=== PATIENT | male | born 1965 | race Caucasian/White ===

== ENCOUNTER 2023-09-19 07:16 | Emergency (ER) | payer OTHER, SELFPAY ==
--- NOTE | ~2023-09-19 | XR_ITS ---
EXAMINATION: XR CHEST AP PORTABLE, 8:01 AM CLINICAL INFORMATION: Dyspnea COMPARISON: None available. TECHNIQUE: Frontal view of the chest was obtained. FINDINGS: No significant abnormality is noted involving the heart, lungs, mediastinum, bony thorax or soft tissues. XR/XR chest 1V IMPRESSION: Unremarkable examination.
[2023-09-19 07:25] VITALS: BP 135/88; PULSE 96; RESP 20; TEMP 35.2; O2SAT 99; BMI 30.5
--- NOTE | 2023-09-19 07:30 | ECG_ITS ---
Test Reason : palpitations Blood Pressure : / mmHG Vent. Rate : 093 BPM Atrial Rate : 000 BPM P-R Int : 000 ms QRS Dur : 092 ms QT Int : 350 ms P-R-T Axes : 000 -46 068 degrees QTc Int : 435 ms Atrial fibrillation Left anterior fascicular block Septal infarct , age undetermined Abnormal ECG No previous ECGs available Referred By: Generic ED Physician Electronically Signed By:Lele Martin
--- NOTE | 2023-09-19 07:43 | ED.ARRPALP ---
HPI - Arrhythmia/Palpitations General Chief Complaint: Arrhythmia/Palpitations Stated Complaint: Diff Breathing Weak Time Seen by Provider: 09/19/23 07:39 Source: patient Mode of arrival: ambulatory Limitations: no limitations History of Present Illness HPI narrative: 57 yo male with PMH of seizures on depakote who was sick over the weekend and taking mucinex regularly almost every 4 hours. He has no fam hx of afib. He has no other medical problems. He did not drink alcohol this weekend and does not do drugs. He went to work this AM felt a very fast and irregular heart beat became dizzy and sweaty. He had no CP. He tested himself for COVID on Sunday but it was negative. He has never had afib before. MD complaint: rapid heart beat, heart racing and palpitations Onset (ago): hour(s) (couple) Duration: constant Severity: moderate Context: occurred during rest Associated symptoms: anxiety and diaphoresis Related Data Previous Rx's Medication Instructions Recorded metoprolol succinate 25 mg 25 mg PO DAILY #30 tabs 09/19/23 tablet,extended release 24 hr (Toprol XL) Allergies Allergy/AdvReac Type Severity Reaction Status Date / Time No Known Allergies Allergy Verified 09/19/23 07:29 Review of Systems Review of Systems: Constitutional : No Fever, No Chills ENT/Mouth : No sore throat, pos Rhinorrhea, No Swallowing Difficulty Eyes: No Eye Pain, No Swelling, No Redness Cardiovascular : No Chest Pain, positive SOB, No Orthopnea, no Edema, pos palpitations Respiratory : No Cough, No Sputum, No Wheezing, positive dyspnea Gastrointestinal : No Nausea, No Vomiting, No Diarrhea, No abdominal Pain, No Hematochezia, No Melena Genitourinary : No Dysuria, No Urinary Frequency, No Hematuria Musculoskeletal : No joint pain, No Myalgias Skin : No Skin Lesions, No rash Neuro : No Weakness, No Numbness, No Dizziness, No Headache Psych : No Anxiety/Panic, No Depression All other systems reviewed and are negative [facility] Past Medical History Attestation statement: The following information was validated with the patient. Source: old records reviewed Onset Date is defined in the Problem List Problems that require an onset date and time if occurred within 24 hrs of arrival to the ED Aortic Dissection and Rupture; Neurologic impairment; Cardiopulmonary Arrest; Endotracheal Intubation; Insertion or Replacement of Mechanical Circulatory Assist Device Medical History Seizures Social History Social History (Updated 09/19/23 @ 08:14 by Cori Osorio DO) Alcohol intake: current Patient Tobacco Use Status: Tobacco use Unknown Smoked in Last 30 Days: No Use of substances other than those prescribed or required for medical reasons: Yes Substance Use Type: Marijuana Substance Use Frequency: Occasionally Advance Directives: No Advance Directives Information Provided: No Physical Exam Vital Signs: Vital Signs: Last Vital Signs Temp 95.4 F L 09/19/23 07:25 Pulse 72 09/19/23 13:52 Resp 16 09/19/23 13:52 BP 107/80 09/19/23 13:52 Pulse Ox 98 09/19/23 13:52 O2 Del Method Room Air 09/19/23 13:52 BMI result Body Mass Index 30.5 Appearance: Alert. Oriented X3. No acute distress. Eyes: Pupils equal, round and reactive to light. ENT: Pharynx normal. Neck: Normal inspection. Neck supple. no JVD CVS: irregular 80s to 100s heart rate and rhythm. Pulses normal. Respiratory: No respiratory distress. Breath sounds normal. Abdomen: Soft and non-tender. Skin: Skin warm and dry. Normal skin color. Normal skin turgor. Extremities: No lower extremity edema. No calf ttp Neuro: Oriented X 3. No motor deficit. No sensory deficit. Course Course Course Narrative: discussed workup with Dr. Martin at this time recommends IV lopressor 5mg hold off flecainide or cardioversion Reevaluation(s) Reevaluation #1: still in afib pending further cardiology recommendations Reevaluation #2: Mario rate control - DC home follow up in clinic Medications Administered Discontinued Medications Generic Name Dose Route Start Last Admin Trade Name Freq PRN Reason Stop Dose Admin Diltiazem HCl 5 mg 09/19/23 08:07 09/19/23 08:37 Diltiazem Hcl 50 Mg/10 Ml Vial IVPUSH 09/19/23 08:08 5 mg STAT STA Administration Sodium Chloride 1,000 mls @ 999 mls/hr 09/19/23 08:15 09/19/23 09:37 Ns IV 09/19/23 09:15 Infused .Q1H1M MICHAEL Infusion Magnesium Sulfate 2 gm in 50 mls @ 25 mls/hr 09/19/23 08:07 09/19/23 10:43 Magnesium Sulfate/H2o IV 09/19/23 10:06 Infused ONCE ONE Infusion Metoprolol Tartrate 5 mg 09/19/23 10:13 09/19/23 10:23 Metoprolol Tartrate 5 Mg/5 Ml Vial IVPUSH 09/19/23 10:14 5 mg ONCE ONE Administration Medical Decision Making Medical Decision Making MDM Narrative: 57 yo male with PMH of seizures on depakote here with c/o irregular heart beat and palpitations in setting of recent URI and taking a lot of mucinex - EKG shows afib. At this time will obtain basic labs, lytes, hydrate, low dose dilt and magnesium. His chads vasc score is 0 at this time. Doubt ischemia. 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 09/19/23 07:46 09/19/23 07:46 Labs: Lab Results 09/19/23 Range/Units 07:46 WBC 3.9 L (4.8-10.8) X10*3/uL RBC 5.43 (4.60-5.80) X10*6/uL Hgb 16.3 (14.0-18.0) g/dl Hct 48.4 (42.0-52.0) % MCV 89.1 (80.0-98.0) fL MCH 30.0 (27.0-33.0) pg MCHC 33.7 (31.0-36.0) g/dl RDW 13.4 (11.0-16.0) % Plt Count 163 (160-400) X10*3/uL MPV 9.7 (9.4-12.4) fL Immature Gran % (Auto) 0.8 H (0.0-0.4) % Neut % (Auto) 37.0 L (45-73) % Lymph % (Auto) 37.2 (20-40) % [place] % (Auto) 19.6 H (2-11) % Eos % (Auto) 4.6 H (0-4) % Baso % (Auto) 0.8 (0-2) % Lymph # (Auto) 1.5 (1.2-4.9) X10*3/uL [place] # (Auto) 0.8 (0.1-1.2) X10*3/uL Eos # (Auto) 0.2 (0.0-0.4) X10*3/uL Baso # (Auto) 0.0 (0.0-0.2) X10*3/uL Abs Immat Gran (auto) 0.03 (0.00-0.03) X10*3/uL Absolute Neuts (auto) 1.5 L (2.0-8.3) x10*3/uL Absolute Nucleated RBC 0.000 (0.0-0.012) X10*3/uL Nucleated RBC % (auto) 0.0 (0.0-0.2) /100WBC Sodium 142 (135-145) mmol/L Potassium 3.5 (3.3-5.1) mmol/L Chloride 107 (96-108) mmol/L Carbon Dioxide 28 (22-29) mmol/L Anion Gap 11 L (12-20) BUN 16 (9-16) mg/dL Creatinine 0.96 (0.5-1.4) mg/dL Estim Creat Clear Calc 108.2 Estimated GFR > 60 Random Glucose 95 (60-115) mg/dL Calcium 9.7 (8.4-10.2) mg/dL Magnesium 1.9 (1.6-2.6) mg/dL Total Bilirubin 0.3 (0.0-1.0) mg/dL Direct Bilirubin 0.1 (0.0-0.5) mg/dL AST 28 (5-37) U/L ALT 29 (0-40) U/L Alkaline Phosphatase 65 (39-117) U/L Troponin I High Sens 3.6 (<3.5-35.0) ng/L B-Natriuretic Peptide 33 (<100) pg/mL Total Protein 7.9 (6.5-8.0) g/dL Albumin 4.4 (3.5-5.0) g/dL Lipase 33 (8-78) U/L TSH 2.97 (0.32-4.0) uIU/mL Urine Color Yellow Urine Appearance Clear Urine pH 6.0 (5.0-9.0) Ur Specific [place] 1.010 (1.005-1.025) Urine Protein Trace (Neg-Trace) mg/dL Urine Glucose (UA) Negative (Negative) mg/dL Urine Ketones Negative (Negative) mg/dL Urine Blood Negative (Negative) Urine Nitrite Negative (Negative) Ur Leukocyte Esterase Negative (Negative) Ethyl Alcohol < 10 mg/dL COVID-19 (ROBIN) Negative (Negative) COVID-19 Clin Com See Note Influenza Type A (SCHUYLER) Positive A (Negative) Influenza Type B ([facility]ER) Negative (Negative) Influenza A & B Note See Note Independent Interpretation I performed an independent interpretation of an: EKG and Plain X-Ray (normal ) Interpretation: Rate: 93 Rhythm: afib [place]: left Normal QRS complex. ST T wave : nonspecficic but no TARA qTC: 435 prior studies: no prior The study has been interpreted contemporaneously by me. . Radiology Impression Discussion of test interpretation with radiology: I have reviewed the radiologist's reading. Prescription Management I considered prescription management with: Other Critical Care Time Critical Care Time Critical Care Time: Yes Total Critical Care Time: 40 Attestation: repeat IV medications for HR rate control, consult I attest to this time spent taking care of the patient Discharge Plan Discharge Clinical Impression: Influenza A Atrial fibrillation Qualifiers: Atrial fibrillation type: paroxysmal Qualified Code(s): I48.0 - Paroxysmal atrial fibrillation Patient Disposition: Home, Self-Care Instructions: A-fib (Atrial Fibrillation) (ED), Influenza (ED) Additional Instructions: avoid alcohol and cough/cold medications return for HR over 100, chest pain, trouble breathing, leg swelling, dizziness or any other concerns. start the toprol in the AM hold if the blood pressure below 100 or HR below 50 - call your doctor and cardiology for follow up take 81mg baby aspirin a day Prescriptions: New metoprolol succinate [Toprol XL] 25 mg tablet extended release 24 hr 25 mg PO DAILY Qty: 30 0RF Referrals: Lele Martin MD [Physician] - (call to schedule appointment) Stand Alone Forms: Work/School Release Interventions: ED Discharge Assessment Last Done: 09/19/23 15:07 Discharge Date/Time: 09/19/23 15:07
--- NOTE | 2023-09-19 07:45 | PC.NURSE ---
MD to bedside for primary eval.
[2023-09-19 07:52] LABS: MANUAL DIFF FLAG NO
[2023-09-19 07:54] LABS: Appearance Urine Clear; Basophils Percent Auto 0.8 % (0-2); Color Urine Yellow; Eosinophils Absolute Auto 0.2 X10*3/uL (0.0-0.4); Eosinophils Percent Auto 4.6 % (0-4); Glucose Urine UA Negative (Negative); Hematocrit 48.4 % (42.0-52.0); Hemoglobin 16.3 g/dl (14.0-18.0); Imm Gran Abs Auto 0.03 X10*3/uL (0.00-0.03); Imm Gran Pct Auto 0.8 % (0.0-0.4); Leukocyte Esterase Urine Negative (Negative); Lymphocytes Absolute Auto 1.5 X10*3/uL (1.2-4.9); Lymphocytes Percent Auto 37.2 % (20-40); Mean Corpuscular HGB Conc 33.7 g/dl (31.0-36.0); Mean Corpuscular Volume 89.1 fL (80.0-98.0); Mean Platelet Volume 9.7 fL (9.4-12.4); Monocytes Absolute Auto 0.8 X10*3/uL (0.1-1.2); Monocytes Percent Auto 19.6 % (2-11); Neutrophils Absolute Auto 1.5 x10*3/uL (2.0-8.3); Nitrite Urine Negative (Negative); Platelet Count 163 X10*3/uL (160-400); Red Blood Count 5.43 X10*6/uL (4.60-5.80); Red Cell Distribution Width 13.4 % (11.0-16.0); Urine Blood Negative (Negative); Urine Ketones Negative (Negative); Urine Protein Trace mg/dL (Neg-Trace); White Blood Count 3.9 X10*3/uL (4.8-10.8)
[2023-09-19 08:08] LABS: Alanine Aminotransferase 29 U/L (0-40); Albumin Level 4.4 g/dL (3.5-5.0); Alkaline Phosphatase 65 U/L (39-117); Anion Gap 11 (12-20); Aspartate Amino Transferase 28 U/L (5-37); Bilirubin Direct 0.1 mg/dL (0.0-0.5); Bilirubin Total 0.3 mg/dL (0.0-1.0); Blood Urea Nitrogen 16 mg/dL (9-16); Calcium 9.7 mg/dL (8.4-10.2); Carbon Dioxide 28 mmol/L (22-29); Chloride 107 mmol/L (96-108); Creatinine Clr Calc Pharmacy 108.2; Estimated Glomerular Filt Rate > 60; Glucose Random 95 mg/dL (60-115); Lipase 33 U/L (8-78); Potassium 3.5 mmol/L (3.3-5.1); Sodium 142 mmol/L (135-145); Total Protein 7.9 g/dL (6.5-8.0)
[2023-09-19 08:13] LABS: B Type Natriuretic Peptide 33 pg/mL (<100)
[2023-09-19 08:15] LABS: Troponin-I High Sensitivity 3.6 ng/L (<3.5-35.0)
[2023-09-19 08:16] LABS: Ethanol < 10 mg/dL; Magnesium 1.9 mg/dL (1.6-2.6)
[2023-09-19 08:17] LABS: COVID-19 Test Negative (Negative); IDNOW Serial# 58CA691E
[2023-09-19 08:18] LABS: IDNOW Serial# 9DB6401D; Influenza A Positive (Negative); Influenza B2 Negative (Negative)
[2023-09-19 08:29] LABS: TSH reflex Free T4 2.97 uIU/mL (0.32-4.0)
[2023-09-19] MEDS: 0.9 % Sodium Chloride 1,000 ML 999 ML IV (08:30)
[2023-09-19] MEDS: dilTIAZem HCL 50 MG/10 ML VIAL IVPUSH (08:37)
[2023-09-19] MEDS: Magnesium Sulfate/H2O 2 GM/50 ML PIGGYBACK IV (08:38)
[2023-09-19 08:44] VITALS: BP 112/78; PULSE 85; RESP 16; O2SAT 98
[2023-09-19 10:00] VITALS: BP 128/85; PULSE 69; RESP 16; O2SAT 99
--- NOTE | 2023-09-19 10:09 | PC.NURSE ---
Pt resting on stretcher, skin pwd respirations even unlabored. Denies chest pain. Afib on monitor HR 69-79. Mag continues to infuse without difficulty. MD Osorio to bedside for reeval.
[2023-09-19 10:28] VITALS: BP 117/84; PULSE 64; RESP 14; O2SAT 97
--- NOTE | 2023-09-19 10:29 | PC.NURSE ---
Medicated with metoprolol IVP per MD order, Remains afib on monitor HR 61-70, continues to deny chest pain. Will continue to monitor.
[2023-09-19 12:16] VITALS: BP 123/88; PULSE 67; RESP 15; O2SAT 99
--- NOTE | 2023-09-19 12:47 | PC.NURSE ---
No change in physical assessment, remains afib on monitor HR 64. Awaiting cardiology consult, aware of plan of care.
[2023-09-19 13:52] VITALS: BP 107/80; PULSE 72; RESP 16; O2SAT 98
--- NOTE | 2023-09-19 15:06 | PC.NURSE ---
Pt cleared for dc with outpt cardiology f/u. IV removed, dc instructions provided.
== END 2023-09-19 15:07 | disposition home or self-care (01) ==
PROVIDERS: Emergency Provider Emergency Medicine; PCP Internal Medicine
DX: J10.1 Influenza due to other identified influenza virus with other respiratory manifestations (principal); I48.0 Paroxysmal atrial fibrillation; R00.2 Palpitations; R06.00 Dyspnea, unspecified; Z11.52 Encounter for screening for COVID-19; Z79.899 Other long term (current) drug therapy
CPT/HCPCS: 36415; 71045; 80048; 80076; 80307; 81003; 83690; 83735; 83880; 84443; 84484; 85025; 87502; 87635; 93005; 96361; 96365; 96375; 99284; 99285; J3475

== ENCOUNTER → 2023-09-19 07:30 | Outpatient (BNV) | payer OTHER, SELFPAY | PROVIDERS: Emergency Provider Emergency Medicine; PCP Internal Medicine; Visit Provider Internal Medicine Cardiovascular Disease | DX: I48.91 Unspecified atrial fibrillation (principal); R94.31 Abnormal electrocardiogram [ECG] [EKG] | CPT/HCPCS: 93010 ==

== ENCOUNTER 2023-09-25 15:08 | Outpatient (AMB) | payer OTHER, SELFPAY ==
[2023-09-25 15:13] VITALS: BP 114/84; PULSE 75; BMI 30.5
--- NOTE | 2023-09-25 15:13 | A.OFFVIS_ITS ---
Intake Vital Signs 09/25/23 15:13 Height 6 ft 2 in Weight 237 lb 3.478 oz BMI 30.5 BP 114/84 Blood Pressure Location Lt brachial Position Sitting Pulse 75 Pulse Source Pulse Oximeter Intake Visit Reasons: [facility] follow up/ Afib Allergies No Known Allergies Allergy (Verified 09/25/23 15:16) Medication List - Last Reconciled 09/25/23 by Benita Sawant, [employer] divalproex 500 mg PO TID metoprolol succinate ER (Toprol XL) 25 mg PO DAILY HPI [facility] follow up/ Afib HPI Details Kye is a 57-year-old male with past medical history of seizures and obstructive sleep apnea who recently had influenza and went to the emergency room with heart palpitations. He was found to have new onset atrial fibrillation that was treated with heart rate control. He was started on metoprolol and referred to Cardiology in outpatient follow-up. Today he presents for cardiology consultation. He denies any known history of AFib but reports that he has felt heart palpitations on 1 other occasion in the past. He does not remember the circumstances of that episode. Last week when he felt palpitations he had been feeling ill and was taking lots of Mucinex. He noticed heart palpitation and tried to check his pulse. He found that it was very irregular and he knew this was abnormal. He presented to the ER for evaluation as above. Once he was treated with medications his heart palpitations improved. He has not had recurrent heart palpitations since that time. He denies having chest discomfort at rest or with activity. No shortness of breath, lightheadedness, presyncope, syncope, PND, orthopnea or edema. 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 He never smoked. He drinks alcohol socially. He has a history of obstructive sleep apnea but does not wear his mask. No known family history of AFib, [place], strokes. His sister has history of arrhythmia which he believes is tachycardia. [facility] Medical History Seizures Family History Sister Arrhythmia Social History Alcohol intake: current Patient Tobacco Use Status: Tobacco use Unknown Substance Use Type: Marijuana Review of Systems Const All systems reviewed & are unremarkable except as noted in HPI and below ENT Denies dizziness Card Denies chest pain, Denies chest pain at rest, Denies chest pain with activity, Reports rapid heart rate, Denies pedal edema, Denies edema, Denies leg edema, Denies lightheadedness, Reports palpitations, Denies dyspnea, Denies dyspnea on exertion and Denies orthopnea Resp Denies cough, Denies dyspnea and Denies dyspnea on exertion GI Denies hematochezia and Denies change in stool character Musc Reports abnormal gait (numbness right foot), Denies limited range of motion, Denies muscle cramps, Denies muscle weakness, Denies numbness, Denies radiating pain into limb, Denies stiffness and Denies tingling Neuro Reports abnormal gait (numbness right foot), Denies dizziness, Denies numbness and Denies tingling Endo Reports palpitations Physical Exam Vital Signs: BMI result Body Mass Index 30.5 Const General: cooperative, healthy appearing, comfortable and no acute distress Orientation/consciousness: patient oriented x3 Neck Neck: Yes normal visual inspection Resp Effort & Inspection: normal respiratory effort Auscultation: clear to auscultation bilaterally, no crackles, no rales, no rhonchi and no wheezes Cardio Jugular venous distension: no JVD Rate: regular rate Rhythm: regular rhythm Heart sounds: S1 normal heart sound present, S2 normal heart sound present, no murmurs and no rubs Neuro General: patient oriented x3 Extrem General: Yes normal to inspection and No no pedal edema Psych Appearance: grossly normal Mental Status: mental status grossly normal Speech and movement: Normal speech and movement present Office Procedures EKG Details: Today, read by me, normal sinus rhythm, no acute ST and T-wave abnormalities, rate 72, QTC 411 milliseconds [id number], Complete Assessment & Plan Assessment & Plan (1) Atrial fibrillation: Code(s): I48.91 - Unspecified atrial fibrillation Qualifiers: Atrial fibrillation type: paroxysmal Qualified Code(s): I48.0 - Paroxysmal atrial fibrillation Plan: New finding of atrial fibrillation at time of ER visit 09/19/2023 in the setting of influenza A. Patient notice heart palpitations, elevated heart rates causing concern. EKG in the emergency room shows atrial fibrillation, heart rate 93, no acute ST or T-wave abnormalities. Troponin level was normal, BNP 33. He was treated for heart rate control then started on metoprolol XL 25 mg daily. It seems that he was discharged in ongoing atrial fibrillation with improved heart rate. EKG done today showing normal sinus rhythm, no acute ST or T-wave abnormality, rate 72. He has not had any recurrent heart palpitations. He has been taking his metoprolol. Chads Vasc score of 0, low stroke risk. Diagnosis of atrial fibrillation reviewed with him in detail, stroke risk with AFib discussed. He has a known history of obstructive sleep apnea and does not use his CPAP mask. This can contribute to his diagnosis of AFib and recurrent episodes. Instructed on wearing his mask at least 4 hours nightly. Will check an echocardiogram to assess for any structural heart disease. Will order a Holter monitor to assess for any recurrent atrial fibrillation. Will continue on metoprolol XL. Reduce caffeine/stimulants. Exercise as tolerated, maintain good hydration and reduce alcohol intake. Cardiology follow-up in 4-6 weeks to go over test results, sooner if needed. (2) Obstructive sleep apnea: Code(s): G47.33 - Obstructive sleep apnea (adult) (pediatric) Plan: As above Plan Time spent on chart review, documentation, interview and assessment Orders: Orders CA echo transthoracic complete Today I48.91 - Unspecified atrial fibrillation ECG 3 day holter monitor Today I48.91 - Unspecified atrial fibrillation Medications: Refilled metoprolol succinate ER (Toprol XL) 25 mg PO DAILY 90 tabs 1RF Coding Level of Care Code New Pt Level 3 (29192) Diagnoses Atrial fibrillation I48.0 Atrial fibrillation type: paroxysmal Obstructive sleep apnea G47.33 CPT Codes EKG - CPT: 13637-[id number], Complete ([id number]) Time Spent (min) 26
== END 2023-09-25 16:00 | disposition home or self-care (01) ==
PROVIDERS: PCP Internal Medicine; Visit Provider Nurse Practitioner Family
DX: I48.0 Paroxysmal atrial fibrillation (principal); G47.33 Obstructive sleep apnea (adult) (pediatric)
CPT/HCPCS: 93010; 99203

== ENCOUNTER → 2023-09-25 15:08 | Outpatient (BNVA) | payer OTHER, SELFPAY | PROVIDERS: PCP Internal Medicine; Visit Provider Nurse Practitioner Family | DX: I48.0 Paroxysmal atrial fibrillation (principal); G47.33 Obstructive sleep apnea (adult) (pediatric); Z79.899 Other long term (current) drug therapy | CPT/HCPCS: 93005 ==

== ENCOUNTER → 2023-11-13 07:55 | Outpatient (REF) | payer OTHER, SELFPAY ==
--- NOTE | 2023-11-13 08:01 | HM_ITS ---
Conclusion: 1. Patient was monitored for total period of 3 days 2. Baseline was normal sinus rhythm with average heart of 75 beats per minute 3. No significant arrhythmias or pauses noted 4. No patient reported events MTDD
--- NOTE | 2023-11-13 08:01 | CA_ITS ---
Transthoracic Echocardiogram Amended Patient (Last, First, Middle): Kye Castro S Gender: Male Date of : 1965 Age: 58 Procedure Date: 11/13/2023 Procedure Type: Transthoracic Echocardiogram Location: OP Height: 187.96 cm Weight: 106.6 kg BSA: 2.33 m2 Heart Rate: bpm BP: 130 / 80 mmHg Broadcast Journalist: TO Referring MD: Benita Sawant [employer]ODWIN[employer] TEACHERMarky Symptoms: I48.91 - Unspecified atrial fibrillation Study Quality: Adequate ECG Rhythm: Sinus Conclusions: - The left ventricular systolic function is normal. The calculated ejection fraction is 62% by biplane method. - There is moderately increased left ventricular wall thickness. - There is moderate septal asymmetric hypertrophy. - No obvious valvular pathology seen on this study. Findings Left Ventricle Normal left ventricular cavity size. There is moderately increased left ventricular wall thickness. The left ventricular systolic function is normal. The calculated ejection fraction is 62% by biplane method. There is no evidence of regional wall motion abnormalities. Diastolic function is normal for age. There is moderate septal asymmetric hypertrophy. LV peak GLS -19.6%. (LV thickness difficult to measure). Right Ventricle Mildly increased right ventricular cavity size. There is normal right ventricular systolic function. Atria The left atrium is mildly dilated. The right atrium is normal in size. Aortic Valve There is a normal trileaflet aortic valve. There is no aortic valve stenosis. There is no aortic valve regurgitation. Mitral Valve The mitral valve appears normal. There is trace mitral valve regurgitation. There is no mitral valve stenosis. Pulmonic Valve There is trace pulmonic valve regurgitation. Tricuspid Valve Normal tricuspid valve structure. There is trace tricuspid valve regurgitation. There is no evidence of pulmonary hypertension. Great Vessels The asc aorta is normal in size. Venous The inferior vena cava is normal in size and collapses greater than 50% with inspiration. Pericardium/Pleural There is no evidence of pericardial effusion. Prior Study Comparison No prior study available for comparison. Recommendations, Care & Conclusions No obvious valvular pathology seen on this study. Measurements 2D Linear Measurements IVSd: 1.75 0.6-0.9/0.6-1.0 cm LVIDd: 3.91 3.9-5.3/4.2-5.9 cm LVIDd Index: 1.68 2.4-3.2/2.2-3.1 cm/m2 LVIDs: 2.85 2.0-3.6 cm LVPWd: 1.35 0.7-1.1 cm LA Diam: 3.50 2.7-3.8/3.0-4.0 cm LAIDs Index: 1.50 1.5-2.3 cm/m2 LV Mass: 296.08 67-162/88-224 g LV Mass Index: 127.07 43-95/49-115 g/m2 LVOT Diam: 2.60 3.0+(-)1.3 cm 2D Volumes LA Vol: 38.30 2D Systolic Function EF 4C: 58.80 >55% EF 2C: 62.90 >55% EF BiP: 61.70 >55% Mitral Valve MV Pk E: 0.54 MV PK A: 0.40 MV Decel Time: 224.00 E/A: 1.40 E'Lateral: 9.03 E'Medial: 6.74 E/E' Med: 8.10 E/E' Lat: 6.00 PHT: 65.00 MVA PHT: 3.38 Decel [place]: 2.43 Aortic Valve AoV Pk Umer: 1.16 AoV Mn Umer: 0.81 AoV VTI: 0.25 AoV Pk Grad: 5.00 Aov Mn Grad: 3.00 IDALIA Cont.VTI: 4.57 LVOT LVOT Pk Umer: 0.98 LVOT Mn Umer: 0.63 LVOT VTI: 0.22 LVOT Pk Grad: 4.00 LVOT Mn Grad: 2.00 LVOT Diam: 2.60 LVOT Area: 5.31 Diastolic Function MV Pk E: 0.54 MV Pk A: 0.40 E/A: 1.40 E'Medial: 6.74 E/E' Med: 8.10 E' Laterial: 9.03 E/E' Lat: 6.00 Right Ventricle TAPSE (mm): 22.80 TVS' Umer: 12.10 Tricuspid Valve TR Pk Umer: 1.87 TR Pk Grad: 14.00 RA Press: 3.00 RVSP: 17.00 Great Vessels Aorta Sinus of Valsalva: 4.45 2.0-3.[address] [place]: 2.99 1.7-3.4 cm Ao Asc: 3.90 2.1-3.4 cm Ao Arch: 3.60 Updated in Other Vendor System with Status of Final David Mathis MD electronically signed on 11/18/2023 9:51:53 AM with status of Final
== END ==
LOC: HO.CARD 07:55
PROVIDERS: PCP Internal Medicine; Visit Provider Nurse Practitioner Family
DX: I48.91 Unspecified atrial fibrillation (principal)
CPT/HCPCS: 93242; 93306

== ENCOUNTER → 2023-11-13 08:01 | Outpatient (BNV) | payer OTHER, SELFPAY | PROVIDERS: PCP Internal Medicine; Visit Provider Internal Medicine | DX: I48.91 Unspecified atrial fibrillation (principal) | CPT/HCPCS: 93244; 93306 ==

== ENCOUNTER 2023-11-22 15:22 | Outpatient (AMB) | payer OTHER, SELFPAY ==
[2023-11-22 15:32] VITALS: BP 116/68; PULSE 74; BMI 30.8
--- NOTE | 2023-11-22 15:32 | A.OFFVIS_ITS ---
Intake Vital Signs 11/22/23 15:32 Height 6 ft 2 in Weight 240 lb BMI 30.8 BP 116/68 Blood Pressure Location Lt brachial Position Sitting Pulse 74 Intake Visit Reasons: fu echo Intake Note: follow up echo Allergies No Known Allergies Allergy (Verified 09/25/23 15:16) Medication List - Last Reconciled 11/22/23 by Benita Sawant, TREASURY ANALYST-C aspirin 81 mg PO DAILY divalproex 500 mg PO TID metoprolol succinate ER (Toprol XL) 25 mg PO DAILY HPI fu echo HPI Details Kye is a 58-year-old male past medical history of seizures, obstructive sleep apnea, newer finding of paroxysmal atrial fibrillation in the setting of influenza who recently had a Holter monitor and echocardiogram and now presents for follow-up. Today he reports that he had 1 episode where he felt fluttering in his chest which lasted 3-4 minutes before resolving. No other heart palpitations noted. No chest discomfort at rest or with activity. No shortness of breath, PND, o rthopnea or edema. No lightheadedness, presyncope, syncope, falls. Taking meds as directed. Has not been wearing his CPAP mask. [facility] Medical History Seizures Family History Sister Arrhythmia Social History Alcohol intake: current Patient Tobacco Use Status: Tobacco use Unknown Substance Use Type: Marijuana Review of Systems Const All systems reviewed & are unremarkable except as noted in HPI and below Denies weakness ENT Denies dizziness Card Denies chest pain, Denies chest pain with activity, Denies syncope, Denies rapid heart rate, Denies pedal edema, Denies edema, Denies leg edema, Denies lightheadedness, Reports palpitations, Denies dyspnea, Denies dyspnea on exertion and Denies orthopnea Resp Denies cough, Denies dyspnea and Denies dyspnea on exertion GI Denies hematochezia and Denies change in stool character Musc Denies abnormal gait, Denies muscle cramps, Denies muscle weakness, Denies numbness, Denies radiating pain into limb and Denies tingling Neuro Denies abnormal gait, Denies dizziness, Denies syncope, Denies numbness, Denies tingling and Denies weakness Endo Reports palpitations Physical Exam Vital Signs: Last Vital Signs Pulse 74 11/22/23 15:32 BP 116/68 11/22/23 15:32 BMI result Body Mass Index 30.8 Const General: cooperative, healthy appearing, comfortable and no acute distress Orientation/consciousness: patient oriented x3 Neck Neck: Yes normal visual inspection Resp Effort & Inspection: normal respiratory effort Auscultation: clear to auscultation bilaterally, no crackles, no rales, no rhonchi and no wheezes Cardio Jugular venous distension: no JVD Rate: regular rate Rhythm: regular rhythm Heart sounds: S1 normal heart sound present, S2 normal heart sound present, no murmurs and no rubs Neuro General: patient oriented x3 Extrem General: Yes normal to inspection and No no pedal edema Psych Appearance: grossly normal Mental Status: mental status grossly normal Speech and movement: Normal speech and movement present Assessment & Plan Assessment & Plan (1) Atrial fibrillation: Code(s): I48.91 - Unspecified atrial fibrillation Qualifiers: Atrial fibrillation type: paroxysmal Qualified Code(s): I48.0 - Paroxysmal atrial fibrillation Plan: New finding of atrial fibrillation at time of ER visit 09/19/2023 in the setting of influenza A. Patient notice heart palpitations, elevated heart rates causing concern. EKG in the emergency room shows atrial fibrillation, heart rate 93, no acute ST or T-wave abnormalities. He was treated for heart rate control then started on metoprolol XL 25 mg daily. Chads Vasc score of 0, low stroke risk. On follow up visit his showed normal sinus rhythm, no acute ST or T-wave abnormality, rate 72. An echocardiogram was done on 11/13/2023 showing EF 62%, moderate LVH, moderate septal asymmetric hypertrophy. A Holter monitor was completed however results are not available at the time of this visit. Today he reports that since his last visit he felt 1 episodes of heart palpitations lasting 3-4 minutes. Diagnosis of atrial fibrillation reviewed with him in detail, stroke risk with AFib discussed. Pulse is regular on examination. He has known sleep apnea and tells me he has not been wearing his mask. Benefit of mask use in reducing frequency of atrial fibrillation reviewed. Continue current metoprolol. Plan to call him with Holter results once available. Cardiology follow-up 6 months, sooner if needed (2) Obstructive sleep apnea: Code(s): G47.33 - Obstructive sleep apnea (adult) (pediatric) Plan: As above (3) LVH (left ventricular hypertrophy): Code(s): I51.7 - Cardiomegaly Plan: Echocardiogram showing moderate LVH and moderate septal asymmetric hypertrophy. Patient has known history of hypertension. Blood pressure today 116/68. Does have a EF for many years which has not been fully treated. He does have a CPAP mask but has not used in some time. Reviewed with Dr. Mathis and cardiac MRI was considered to assess for abnormalities such as amyloidosis. Discuss this with patient and he is reluctant to undergo MRI at this time due to the hi cost. With his insurance he has to pay 20%. Instructed him to wear CPAP mask nightly for the next 6 months and we will recheck echocardiogram in 6 months prior to his next cardiology follow-up. If LVH and asymmetric septal hypertrophy unchanged or worsened then MRI will be strongly encouraged. (4) Asymmetric septal hypertrophy: Code(s): I42.2 - Other hypertrophic cardiomyopathy Plan: As above Plan Time spent on chart review, documentation, interview and assessment Orders: Orders CA echo transthoracic complete 05/12/24 G47.33 - Obstructive sleep apnea (adult) (pediatric), I42.2 - Other hypertrophic cardiomyopathy, I51.7 - Cardiomegaly Coding Level of Care Code Est Pt Level 4 (94120) Diagnoses Atrial fibrillation I48.0 Atrial fibrillation type: paroxysmal Obstructive sleep apnea G47.33 LVH (left ventricular hypertrophy) I51.7 Asymmetric septal hypertrophy I42.2 Time Spent (min) 30
== END 2023-11-22 16:28 | disposition home or self-care (01) ==
PROVIDERS: PCP Internal Medicine; Visit Provider Nurse Practitioner Family
DX: I48.0 Paroxysmal atrial fibrillation (principal); G47.33 Obstructive sleep apnea (adult) (pediatric); I51.7 Cardiomegaly; I42.2 Other hypertrophic cardiomyopathy
CPT/HCPCS: 99214

== ENCOUNTER → 2023-11-22 15:22 | Outpatient (BNVA) | payer OTHER, SELFPAY | PROVIDERS: PCP Internal Medicine; Visit Provider Nurse Practitioner Family ==

== ENCOUNTER 2024-05-02 12:52 | Outpatient (AMB) | payer OTHER, SELFPAY ==
--- NOTE | 2024-05-02 12:54 | A.OFFVIS_ITS ---
Vital Signs 05/02/24 12:56 Height 6 ft 2 in Weight 245 lb 9.519 oz BMI 31.5 BP 138/82 Blood Pressure Location Lt brachial Position Sitting Pulse 66 Intake Visit Reasons: Colonoscopy Screening Intake Note: Kye presents to in office visit today as a new patient for colonoscopy screening. CC: Patient has never had a colonoscopy done. He reports having a hemorrhoid and very rarely constipation. Accompanied by: Self / Same As Patient Allergies No Known Allergies Allergy (Verified 05/02/24 13:38) HPI HPI Colonoscopy Screening: Details: 58-year-old male here for preprocedural meeting to discuss a screening colonoscopy. He is referred by [facility] in [facility]. PMX JULI SEizure disorder well controlled no seizure since 2003 Atrial fibrillation Obesity Osteoarthritis of the knees Anxiety History of basal cell carcinoma of the skin * SURGICAL HISTORY Left knee chondroplasty -2015 Rt TKA ALLERGIES: NKDA * [facility] LABS: Laboratory Tests 09/19/23 07:46 WBC 3.9 L Hgb 16.3 Hct 48.4 MCV 89.1 Plt Count 163 Estimated GFR > 60 Total Bilirubin 0.3 Direct Bilirubin 0.1 AST 28 ALT 29 Alkaline Phosphatase 65 TSH 2.97 TODAY'S VISIT This is his first colonoscopy. There are no prior problems with anesthesia or sedation No ID problems. He has JULI but no other respiratory and he has well controlled afib on metopr olol and only asa. There is no known FHX Of crc or polyps. [facility] Medical History (Updated 05/02/24 @ 12:56 by HORTENSIA Guy) Basal cell carcinoma (BCC) of skin of face Seizures Surgical History (Updated 05/02/24 @ 13:35 by SAEID Gaxiola) H/O knee surgery Family History Sister Arrhythmia Social History (Updated 05/02/24 @ 13:35 by SAEID Gaxiola) Alcohol intake: current Patient Tobacco Use Status: Never used Tobacco Substance Use Type: Marijuana Review of Systems Const Denies fatigue, Denies fever(s), Denies night sweats, Denies poor appetite and Denies weight loss ENT Reports Normal hearing present, Denies dental pain, Denies dysphagia, Denies hearing loss, Denies mouth pain, Denies odynophagia, Denies throat swelling, Denies tongue swelling and Reports other (Dentition adequate) Card Reports no additional complaints Resp Reports no additional complaints GI Details: Denies abdominal pain, Denies melena, Denies bloating, Denies hematochezia, Denies constipation, Denies GI cramping, Denies dysphagia, Denies excessive flatus, Denies early satiety, Denies heartburn, Denies diarrhea, Denies nausea, Denies odynophagia, Denies vomiting and Denies hematemesis Skin/Breast Denies pruritus, Denies lesions, Denies rash and Denies jaundice Neuro Reports Normal hearing present and Denies Abnormal speech present Endo Denies fatigue Aller/Immun Denies throat swelling and Denies tongue swelling Physical Exam Vital Signs: Last Vital Signs Pulse 66 05/02/24 12:56 BP 138/82 05/02/24 12:56 BMI result Body Mass Index 31.5 Const General: cooperative, no acute distress, well developed and well groomed Nutritional Appearance: well nourished and obese Orientation/consciousness: oriented to person, oriented to place and oriented to time Limitations: No language barrier HEENT Head: Yes normocephalic and Yes atraumatic Eyes General: appearance normal, both eyes and all related structures Pupils: Equal, round and reactive pupils present Neck Neck: Yes normal visual inspection and Yes no lymphadenopathy Thyroid: Thyroid normal Resp Effort & Inspection: normal respiratory effort and able to speak in complete sentences Auscultation: clear to auscultation bilaterally Cardio Rate: regular rate Rhythm: regular rhythm Heart sounds: Normal, physiologic split S2 sound present Peripheral pulses: radial pulses present and posterior tibial pulses present GI Inspection: No distended, No Abdominal panniculus present and Yes obesity Palpation (GI): Soft to palpation, nontender, no guarding, not rigid and No hepatosplenomegaly present Percussion: Yes normal to percussion Auscultation: normal bowel sounds Rectal Exam - Male: Yes deferred Skin General skin exam: no rashes or lesions noted, turgor normal, skin not dry, no jaundice, No spider nevi and no striae Rashes: no rashes Nails: normal Neuro General: oriented to person, oriented to place and oriented to time Cranial nerves: Yes Equal, round and reactive pupils present and Yes Normal hearing present Speech: No Abnormal speech present Extrem General: Yes normal to inspection, No clubbing, No cyanosis and No edema Psych Appearance: grossly normal and well kempt Mental Status: mental status grossly normal Speech and movement: Normal speech and movement present Affect: normal affect Attitude: cooperative Thought process: Normal thought process present and not confabulating Thought content: Normal thought content present Insight: Good insight present (Psych) Judgement: Good judgement present (Psych) Assessment & Plan Assessment & Plan (1) Pre-op examination: Code(s): Z01.818 - Encounter for other preprocedural examination Category: Medical (2) Obstructive sleep apnea: Code(s): G47.33 - Obstructive sleep apnea (adult) (pediatric) Category: Medical (3) Epilepsy: Code(s): G40.909 - Epilepsy, unspecified, not intractable, without status epilepticus Category: Medical Plan This is his first colonoscopy. There are no prior problems with anesthesia or sedation No ID problems. He has JULI but no other respiratory and he has well controlled afib on metoprolol and only asa. There is no known FHX Of crc or polyps. Orders: Orders Colonoscopy - GI Use Only 05/02/24 Z01.818 - Encounter for other preprocedural examination Medications: New peg 3350-electrolytes 236-22.74-6.74 -5.86 gram (Golytely) until fecal effluent is clear; do not exceed a total volume of 2,000 mL 240 mL PO Q10M 4,000 mL 0RF 1 day Z12.11 - Encounter for screening for malignant neoplasm of colon bisacodyl (Dulcolax (bisacodyl)) 10 mg (2 x 5 mg) PO BEDTIME 4 tabs 0RF 2 days Coding Level of Care Code New Pt Level 3 (09633) Diagnoses Pre-op examination Z01.818 Obstructive sleep apnea G47.33 Epilepsy G40.909
[2024-05-02 12:56] VITALS: BP 138/82; PULSE 66; BMI 31.5
== END 2024-05-02 13:59 | disposition home or self-care (01) ==
PROVIDERS: PCP Internal Medicine; Visit Provider Nurse Practitioner
DX: Z01.818 Encounter for other preprocedural examination (principal); Z12.11 Encounter for screening for malignant neoplasm of colon; G47.33 Obstructive sleep apnea (adult) (pediatric); G40.909 Epilepsy, unspecified, not intractable, without status epilepticus
CPT/HCPCS: S0285

== ENCOUNTER → 2024-05-02 12:52 | Outpatient (BNVA) | payer OTHER, SELFPAY | PROVIDERS: PCP Internal Medicine; Visit Provider Nurse Practitioner ==

== ENCOUNTER 2024-06-13 14:01 | Outpatient (AMB) | payer OTHER, SELFPAY ==
--- NOTE | 2024-06-13 14:22 | A.OFFVIS_ITS ---
Vital Signs 06/13/24 14:23 Height 6 ft 2 in Weight 248 lb 10.903 oz BMI 31.9 BP 114/70 Blood Pressure Location Lt brachial Position Sitting Pulse 67 Pulse Source Pulse Oximeter Intake Visit Reasons: RS 6m f/u after echo Credit Interviewer Required: No Allergies No Known Allergies Allergy (Verified 06/13/24 14:24) Medication List - Last Reconciled 06/13/24 by Benita Sawant, SOFIYA-C aspirin 81 mg PO DAILY bisacodyl (Dulcolax (bisacodyl)) 10 mg (2 x 5 mg) PO BEDTIME 2 days divalproex 500 mg PO TID metoprolol succinate ER (Toprol XL) 25 mg PO DAILY peg 3350-electrolytes 236-22.74-6.74 -5.86 gram (Golytely) 240 mL PO Q10M 1 day HPI HPI RS 6m f/u after echo: Details: Kye is a 58-year-old male past medical history of seizures, obstructive sleep apnea, 1 episode of paroxysmal atrial fibrillation in the setting of influenza, echocardiogram showing asymmetric septal hypertrophy who now presents for follow-up. Today he reports that since his last visit he has been wearing his CPAP mask at times. Admits to approximately 20% use. He does admit to feeling better when he wears it with less daytime sleepiness and more energy. He has had no recurrent heart palpitations. No shortness of breath or chest discomfort at rest or with activity. No PND, orthopnea or edema. No lightheadedness, presyncope, syncope, falls. Taking meds as directed. He has good activity tolerance. [facility] Medical History Basal cell carcinoma (BCC) of skin of face Seizures Surgical History H/O knee surgery Family History Sister Arrhythmia Social History Alcohol intake: current Patient Tobacco Use Status: Never used Tobacco Substance Use Type: Marijuana Review of Systems Const All systems reviewed & are unremarkable except as noted in HPI and below ENT Denies dizziness Card Denies chest pain, Denies chest pain at rest, Denies chest pain with activity, Denies rapid heart rate, Denies pedal edema, Denies edema, Denies leg edema, Denies lightheadedness, Denies palpitations, Denies dyspnea, Denies dyspnea on exertion and Denies orthopnea Resp Denies cough, Denies dyspnea and Denies dyspnea on exertion GI Denies hematochezia and Denies change in stool character Musc Denies abnormal gait, Denies limited range of motion, Denies muscle cramps, Denies muscle weakness, Denies numbness, Denies radiating pain into limb, Denies stiffness and Denies tingling Neuro Denies abnormal gait, Denies dizziness, Denies numbness and Denies tingling Endo Denies palpitations Physical Exam Vital Signs: Last Vital Signs Pulse 67 06/13/24 14:23 BP 114/70 06/13/24 14:23 BMI result Body Mass Index 31.9 Const General: cooperative, healthy appearing, comfortable and no acute distress Orientation/consciousness: patient oriented x3 Neck Neck: Yes normal visual inspection Resp Effort & Inspection: normal respiratory effort Auscultation: clear to auscultation bilaterally, no crackles, no rales, no rhonchi and no wheezes Cardio Rate: regular rate Rhythm: regular rhythm Heart sounds: S1 normal heart sound present, S2 normal heart sound present, no murmurs and no rubs Neuro General: patient oriented x3 Extrem General: Yes normal to inspection Psych Appearance: grossly normal Mental Status: mental status grossly normal Speech and movement: Normal speech and movement present Assessment & Plan Assessment & Plan (1) Atrial fibrillation: Code(s): I48.91 - Unspecified atrial fibrillation Category: Medical Qualifiers: Atrial fibrillation type: paroxysmal Qualified Code(s): I48.0 - Paroxysmal atrial fibrillation Plan: New finding of atrial fibrillation at time of ER visit 09/19/2023 in the setting of influenza A. Patient notice heart palpitations, elevated heart rates causing concern. EKG in the emergency room shows atrial fibrillation, heart rate 93, no acute ST or T-wave abnormalities. He was treated for heart rate control then started on metoprolol XL 25 mg daily. Chads Vasc score of 0, low stroke risk. On follow up visit his showed normal sinus rhythm, no acute ST or T-wave abnormality, rate 72. An echocardiogram was done on 11/13/2023 showing EF 62%, moderate LVH, moderate septal asymmetric hypertrophy. A Holter monitor done on 11/13/2023 for 3 days showed sinus rhythm with average heart rate 75 beats per minute. He has had no known recurrent atrial fibrillation since his initial episode. Previously reviewed the diagnosis of atrial fibrillation reviewed with him in detail, stroke risk with AFib discussed. Pulse is regular on examination. He has known sleep apnea and had not been wearing his mask. Since last visit he reports approximately 20% compliance. Benefit of mask use reviewed with him. Continue current metoprolol. (2) Obstructive sleep apnea: Code(s): G47.33 - Obstructive sleep apnea (adult) (pediatric) Category: Medical Plan: As above (3) LVH (left ventricular hypertrophy): Code(s): I51.7 - Cardiomegaly Category: Medical Plan: Echocardiogram showing moderate LVH and moderate septal asymmetric hypertrophy. Patient has known history of hypertension. Blood pressure today 114/70. Does have history of sleep apnea for many years which has not been fully treated. Since last visit he is wearing his mask approximately 20% of the time. Encouraged him to increase his compliance. A cardiac MRI was previously [place] mmended however he declined due to the high cost of co-pay payments. With his insurance he has to pay 20%. Will recheck echocardiogram in 3 months, prior to his next visit to evaluate his wall thickness with CPAP use. If LVH and asymmetric septal hypertrophy unchanged or worsened then MRI will be strongly encouraged. (4) Asymmetric septal hypertrophy: Code(s): I42.2 - Other hypertrophic cardiomyopathy Category: Medical Plan: As above Plan Time spent on chart review, documentation, interview and assessment Coding Level of Care Code Est Pt Level 3 (23517) Diagnoses Atrial fibrillation I48.0 Atrial fibrillation type: paroxysmal Obstructive sleep apnea G47.33 LVH (left ventricular hypertrophy) I51.7 Asymmetric septal hypertrophy I42.2 Time Spent (min) 24
[2024-06-13 14:23] VITALS: BP 114/70; PULSE 67; BMI 31.9
== END 2024-06-13 14:57 | disposition home or self-care (01) ==
PROVIDERS: PCP Internal Medicine; Visit Provider Nurse Practitioner Family
DX: I48.0 Paroxysmal atrial fibrillation (principal); G47.33 Obstructive sleep apnea (adult) (pediatric); I51.7 Cardiomegaly; I42.2 Other hypertrophic cardiomyopathy
CPT/HCPCS: 99213

== ENCOUNTER → 2024-06-13 14:01 | Outpatient (BNVA) | payer OTHER, SELFPAY | PROVIDERS: PCP Internal Medicine; Visit Provider Nurse Practitioner Family ==

== ENCOUNTER 2024-10-31 09:23 | Day surgery (SDC) | payer OTHER, SELFPAY ==
--- OUTSIDE RECORDS SUMMARY | 2024-08-28 14:16 | XMS_ITS | Continuity of Care Document ---
Author Organization Pre Op [facility] Address [address] [place] [address]- Care Team Providers Care Spinner Open End Name Role Phone Luca ESPINO, Marco Beltrán Primary Care Physician Encounter [facility] [id number] Date(s): 07/15/24 - 08/14/24 Pre [facility] [address] [place] [id number] Attending Physician: Katrin Monroe Admitting Physician: AdmtrKatrin Referring Physician: Admtr ArHaja Encounter Type: Triage Allergies, Adverse Reactions, Alerts No Known Allergies Immunizations Given and Recorded Vaccine Date Status Refusal Reason zoster vaccine, inactivated 06/02/23 Recorded zoster vaccine, inactivated 03/06/23 Recorded tetanus-diphtheria toxoids (Td) 01/08/23 Given tetanus-diphtheria toxoids (Td) 04/28/05 Given SARS-CoV-2 (COVID-19) mRNA BNT-162b2 vac 02/18/21 Recorded SARS-CoV-2 (COVID-19) mRNA BNT-162b2 vac 01/28/21 Recorded influenza virus vaccine, inactivated 1 02/03/14 Gi miguel influenza virus vaccine, inactivated 2 01/18/10 Gi miguel Tet/Diphth/Acel, Pertussis (oldterm) 02/03/14 Give n influ virus vac, H1N1, inactive(oldterm) 3 01/18/10 Given 1Admin Note: WORK 2Admin Note: pt states received elsewhere, but not sure of exact date 3Admin Note: received elsewhere Medications aspirin 81 mg oral delayed release tablet 81 mg, 1, tablet, By Mouth, Daily, # 30 tablet, Refills 0, Maintenance, 01/17/24 3:02:00 PM EDT, Partial fill upon patient request if the prescription is for a schedule II opioid drug. Start Date: 01/17/24 Status: Ordered Quantity: 30.0 Unit: tablet Repeat number: 1 CPAP Equipment See Instructions, # 1 units, Refills 5, Tot. Refills 5, Maintenance, auto CPAP 8-16 cm H2O, with a heated humidifier. Recommend ordering a machine with compliance data tracking capabilities and following residual AHI. - Supplies - Mask, Tubing, Filters & [employer] DX JULI, 12/29/15 12:43:02 PM EDT, Compound Start Date: 12/29/15 Status: Ordered Quantity: 1.0 Unit: Units Repeat number: 6 divalproex sodium 500 mg oral enteric coated tablet 1 tablet, By Mouth, 3 times a day, # 270 tablet, 1 Refills, Maintenance, 06/18/24 2:11:00 PM EDT, [facility], 189, cm, 06/17/24 16:09:00 EDT, Height, 111.6, kg, 06/17/24 16:09:00 EDT, Dry Weight Start Date: 06/18/24 Status: Ordered Quantity: 270.0 Unit: tablet Repeat number: 1 Metoprolol Succinate ER 25 mg oral tablet, extended release 1 tablet = 25 mg, By Mouth, Daily, 0 Refills, Maintenance, 01/17/24 3:02:00 PM EDT, Partial fill uponpatient request if the prescription is for a schedule II opioid drug. Start Date: 01/17/24 Status: Ordered Repeat number: 1 PEG-3350 with Electrolytes Lemon (Eqv-GoLYTELY) oral powder for reconstitution See Instructions, Per GI office instructions in split dose fashion., # 4,000 mL, 0 Refills, Maintenance, 10/12/23 9:33:00 AM EST, [facility]/pharmacy #[id number], Partial fill upon patient request if the prescription is for a schedule II opioid drug., Per GI office instructions in split dose fashion., 189, cm, 01/08/23 14:33:00 EDT, Height Start Date: 10/12/23 Status: Ordered Quantity: 4000.0 Unit: mL Repeat number: 1 Tylenol Extra Strength 500 mg oral tablet 2 tablet = 1,000 mg, By Mouth, Every 6 hours, PRN Pain , Moderate, 0 Refills, Maintenance, 08/22/22 8:29:00 AM EST, Partial fill upon patient request if the prescription is for a schedule II opioid drug. 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 Confirmed 1982 Active Obese class I Confirmed Active JULI (obstructive sleep apnea) Confirmed Active Knee osteoarthritis Confirmed Active Social anxiety disorder Confirmed 2000 Active 1in settng of Influenza A Social History Social History Type Response Smoking Status Never smoker entered on: 02/03/14 Sex Sex Representation Male (finding) Patient Care team information Care Team Personnel Name: Marco Segovia MD Position: [facility] Physician - Primary Care Member Role: PCP Address: [address] [place] [address] Adult & Pediatric Medicine [address] Telecom: Care Team Related Persons Name: MADAY BELL Name: EVERARDO WRIGHT Insurance Providers Guarantor name: [facility] [employer] [facility] Information #: 1 Payer: [employer] Member Number: NA Policy Number: NA Group Number: NA
--- NOTE | 2024-10-30 09:36 | P.CONAN_ITS ---
Documented by User: Christie Love NP 10/30/24 09:41 HPI - Anesthesia Eval Consult details Narrative: 59yo M for Colonoscopy [place] [facility] [facility] [place]H, Asymmetric septal hypertrophy, afib x 1 in setting of flu (no recurrence on holter, no OAC). Stable at 05/2024. [facility] Active Problems Active Problems: All Active Problems Pre-op examination (Acute) Osteoarthritis of both knees (Acute) Anxiety (Acute) Afib (Acute) Obesity (BMI 30.0-34.9) (Acute) Epilepsy (Acute) Asymmetric septal hypertrophy (Acute) LVH (left ventricular hypertrophy) (Acute) Obstructive sleep apnea (Acute) Past Medical History Medical History Basal cell carcinoma (BCC) of skin of face Seizures Family History Family History Sister Arrhythmia Surgical History Surgical History Total knee replacement status H/O knee surgery Social History Social History Are you a primary home care manager to a significant other at home: No Do you presently have visiting nurse or other home services: No Alcohol intake: current Alcohol intake frequency: holidays/special occasions only Patient Tobacco Use Status: Never used Tobacco Use of substances other than those prescribed or required for medical reasons: Yes Substance Use Type: Marijuana Substance Use Frequency: Weekly Have you been hit, kicked, punched, or otherwise hurt by someone within the past year? If so, by whom?: No Are you DNR?: No Advance Directives: No Advance Directives Information Provided: Yes Recently lost weight without trying: No Nutrition Risks: No Nutritional Risk Poor oral hygiene: No Meds Allergies Allergy/AdvReac Type Severity Reaction Status Date / Time No Known Allergies Allergy Verified 10/31/24 10:11 Home Medications ?Medication ?Instructions ?Recorded ?Confirmed ?Last Taken ?Type divalproex 500 mg tablet,delayed 500 mg PO TID 09/25/23 10/31/24 Unknown History release aspirin 81 mg tablet,delayed 81 mg PO DAILY 11/22/23 10/31/24 10/30/24 History release Exam Narrative Narrative: ECHO 2023 Conclusions: - The left ventricular systolic function is normal. The calculated ejection fraction is 62% by biplane method. - There is moderately increased left ventricular wall thickness. - There is moderate septal asymmetric hypertrophy. - No obvious valvular pathology seen on this study. Holter 2023 1. Patient was monitored for total period of 3 days 2. Baseline was normal sinus rhythm with average heart of 75 beats per minute 3. No significant arrhythmias or pauses noted 4. No patient reported events Assessment and Plan Assessment Anesthesia Assessment: Chart Reviewed Documented by User: Tameka Breaux MD 10/31/24 11:43 [facility] Active Problems Active Problems: All Active Problems Pre-op examination (Acute) Osteoarthritis of both knees (Acute) Anxiety (Acute) H/o Afib (Acute) Obesity (BMI 30.0-34.9) (Acute) Epilepsy (Acute) Asymmetric septal hypertrophy (Acute) LVH (left ventricular hypertrophy) (Acute) Obstructive sleep apnea (Acute)- not using CPAP machine Marijuana last used 5 days ago Past Medical History Medical History Basal cell carcinoma (BCC) of skin of face Seizures Family History Family History Sister Arrhythmia Family history of problems with anesthesia: No Surgical History Surgical History Total knee replacement status H/O knee surgery History of Problems with Anesthesia: No Social History Social History Are you a primary home care manager to a significant other at home: No Do you presently have visiting nurse or other home services: No Alcohol intake: current Alcohol intake frequency: holidays/special occasions only Patient Tobacco Use Status: Never used Tobacco Use of substances other than those prescribed or required for medical reasons: Yes Substance Use Type: Marijuana Substance Use Frequency: Weekly Have you been hit, kicked, punched, or otherwise hurt by someone within the past year? If so, by whom?: No Are you DNR?: No Advance Directives: No Advance Directives Information Provided: Yes Recently lost weight without trying: No Nutrition Risks: No Nutritional Risk Poor oral hygiene: No Meds Allergies Allergy/AdvReac Type Severity Reaction Status Date / Time No Known Allergies Allergy Verified 10/31/24 10:11 Home Medications ?Medication ?Instructions ?Recorded ?Confirmed ?Last Taken ?Type divalproex 500 mg tablet,delayed 500 mg PO TID 09/25/23 10/31/24 Unknown History release aspirin 81 mg tablet,delayed 81 mg PO DAILY 11/22/23 10/31/24 10/30/24 History release Exam Height,Weight and Vital Signs: Height 6 ft 2 in Weight 113.398 kg Vital Signs Temp Pulse Resp BP Pulse Ox O2 Del Method 10/31/24 10:30 97.7 F 68 14 141/78 H 98 Room Air Narrative Narrative: tECHO 2023 Conclusions: - The left ventricular systolic function is normal. The calculated ejection fraction is 62% by biplane method. - There is moderately increased left ventricular wall thickness. - There is moderate septal asymmetric hypertrophy. - No obvious valvular pathology seen on this study. Holter 2023 1. Patient was monitored for total period of 3 days 2. Baseline was normal sinus rhythm with average heart of 75 beats per minute 3. No significant arrhythmias or pauses noted 4. No patient reported events Airway Mallampati Class: III TM Dist: >3cm Neck ROM: Full (Occasional crick in neck. Fracture neck several years ago. No surgery ) Loose/Missing/Broken Teeth: Yes (Missing molars. Denies broken or loose teeth) Heart: RRR Lungs: CTAB Assessment and Plan Assessment Anesthesia Assessment: Anesthesia Plan Discussed and Chart Reviewed Final Anesthetic Review Family History of Problems with Anesthesia: No History of Problems with Anesthesia: No NPO: Yes ASA Class: III Final Preanesthetic Review: No Changes in Pt Med Stat, Meds/Allgs Chart Reviewed, Consent Obtained/Reviewed and Anes Risks/Benef Reviewed Patient Risk: Intermediate Procedure Risk: Low Assessment/Block/Sedation in SS: Assess/Block/Sedation-SS Anesthetic Plan Anesthetic Plan: TIVA Disposition: Standard PACU
[2024-10-31 10:30] VITALS: BP 141/78; PULSE 68; RESP 14; TEMP 36.5; O2SAT 98; BMI 32.1
--- NOTE | 2024-10-31 10:47 | MHC.SHP ---
Pre-Procedural Eval Section A - 24 Hr Update-Section A only Date of Service: 10/31/24 The patient is an INPATIENT: No The patient has been examined within 24 hours of the surgical procedure. The History & Physical has been completed within 30 days and I have reviewed it.: No Section B - Complete if H&P > 30 days Chief Complaint: Colon cancer screening Relevant Family History (Specify if Yes): No Present Medications: see Short Stay Collaborative assessment Medical History: Significant History (JULI SEizure disorder well controlled no seizure since 2003 Atrial fibrillation Obesity Osteoarthritis of the knees Anxiety History of basal cell carcinoma of the skin) History of Previous Operations: Relevant previous surgery/procedure and date(s) (History of knee surgery) Allergies: Allergies Allergy/AdvReac Type Severity Reaction Status Date / Time No Known Allergies Allergy Verified 10/31/24 10:11 Review of Systems Sugical H&P ROS: Negative: Constitution, Cardiovascular, Respiratory and Gastrointestinal Exam Surgical H&P Exam: Normal: Heart, Normal: Lungs, Normal: Extremities and Normal: Abdomen Plan Diagnosis/Plan: Unchanged I have reviewed the history and physical and performed a pertinent physical examination on my patient. No changes have occurred unless specified. Time Spent With Patient Time: Total time managing care of this patient today ____ minutes.
[2024-10-31] MEDS: Lactated Ringers 1,000 ML 100 ML IVCONT (10:50)
--- NOTE | 2024-10-31 12:23 | HO.OPN-COLON ---
Colonoscopy Operative Note Operative Note Date of Service: 10/31/24 Narrative: COLONOSCOPY TILL CECUM WITH SNARE POLYPECTOMY Pre-op diagnosis: Colon cancer screening (First colon). Post-op diagnosis:? Colon polyp, Diverticulosis, hemorrhoids Endoscopist:? Marcella Cardenas MD Anesthesia:?MAC Consent: Indications for the procedure and potential complications of bleeding, perforation, reaction to medications and missed diagnosis were discussed with the patient and informed consent was obtained. Instrument: Olympus CF H 190 L variable stiffness adult colonoscope Monitoring: Vital signs and clinical assessment, intermittent blood pressure monitoring, continuous EKG monitoring, Pulse oximetry and Carbon Dioxide monitoring were done throughout the procedure. Please see anesthesia flowsheet. Colon withdrawl time was 16 minutes. Procedure: The patient was placed in the left lateral decubitis position and pre-procedure medications were administered. After a digital rectal examination of the ano-rectum, the video colonoscope was inserted into the rectum and advanced through the colon to the cecum. The colonoscope was slowly withdrawn in a retrograde panoramic fashion and the colon mucosa was carefully examined including a retroflexed view of the rectum. Findings and interventions are described below. Procedure Difficulty: Colon was long and there was some loop formation. LLQ pressure was applied to intubate the cecum. Findings: Terminal Ileum: Not evaluated Cecum: Normal Ascending Colon: Moderate diverticulosis throughout the entire colon Transverse Colon: Moderate diverticulosis throughout the entire colon Descending Colon: Moderate diverticulosis throughout the entire colon Sigmoid Colon: A 7-8 mm sessile polyp - removed with a cold snare. Severe diverticulosis with luminal narrowing Rectum: Normal Ano-rectum: Moderate internal hemorrhoids Colon preparation: Excellent after some irrigation. [place] Bowel Preparation Scale Right colon; 3 Transverse colon: 3 Left colon; 3 (0 = Unprepared colon segment with mucosa not seen due to solid stool that cannot be cleared. 1 = Portion of mucosa of the colon segment seen, but other areas of the colon segment not well seen due to staining, residual stool and/or opaque liquid. 2 = Minor amount of residual staining, small fragments of stool and/or opaque liquid, but mucosa of colon segment seen well. 3 = Entire mucosa of colon segment seen well with no residual staining, small fragments of stool or opaque liquid) Impression and Post Procedure Diagnosis: Colonoscopy Findings: One small polyp was removed Moderate diverticulosis seen in the entire colon Moderate hemorrhoids on retroflexed exam. Plan: I will send a letter with biopsy results. Repeat Colonoscopy in 5 years if polyps are adenomatous and 10 year if polyps are hyperplastic. Above findings were reviewed with the patient and relevant handouts were given and the discharge area.
[2024-10-31 12:30] VITALS: BP 112/71; PULSE 72; RESP 21; TEMP 36.8; O2SAT 96
[2024-10-31 12:45] VITALS: BP 125/85; PULSE 66; RESP 17; TEMP 36.7; O2SAT 98
== END 2024-10-31 13:27 | disposition home or self-care (01) ==
PROVIDERS: PCP Internal Medicine; Visit Provider Internal Medicine Gastroenterology
PROC: 0DJD8ZZ Inspection of Lower Intestinal Tract, Via Natural or Artificial Opening Endoscopic (ICD-10-PCS; CPT 45378; principal; 2024-10-31 11:10)
DX: Z12.11 Encounter for screening for malignant neoplasm of colon (principal); D12.5 Benign neoplasm of sigmoid colon; K57.30 Diverticulosis of large intestine without perforation or abscess without bleeding; K64.8 Other hemorrhoids; G40.909 Epilepsy, unspecified, not intractable, without status epilepticus; I48.91 Unspecified atrial fibrillation; G47.33 Obstructive sleep apnea (adult) (pediatric); Z85.828 Personal history of other malignant neoplasm of skin; Z79.82 Long term (current) use of aspirin; Z79.899 Other long term (current) drug therapy
CPT/HCPCS: 45385; 88305; J2003; J2704

== ENCOUNTER → 2024-10-31 09:23 | Outpatient (BNV) | payer OTHER, SELFPAY | PROVIDERS: PCP Internal Medicine; Visit Provider Internal Medicine Gastroenterology | DX: Z12.11 Encounter for screening for malignant neoplasm of colon (principal); D12.5 Benign neoplasm of sigmoid colon; K57.90 Diverticulosis of intestine, part unspecified, without perforation or abscess without bleeding; K64.8 Other hemorrhoids | CPT/HCPCS: 45385 ==